=== PATIENT | male | born 1965 | race Caucasian/White ===

== ENCOUNTER → 2021-08-28 | Outpatient (CLI) | payer OTHER ==
[2021-08-28 12:09] LABS: BUN/CREATININE RATIO 8 (0-10)
== END ==
LOC: OPSV2 10:30
PROVIDERS: Orthopaedic Surgery
DX: Z01.818 Encounter for other preprocedural examination (principal); S83.241A Other tear of medial meniscus, current injury, right knee, initial encounter
CPT/HCPCS: 80048; 93005

== ENCOUNTER → 2021-09-11 | Day surgery (SDC) | payer OTHER ==
[~2021-09-11] VITALS: Ht 175.3 cm; Wt 83.0 kg
[~2021-09-11] MED LIST: ADVAIR 250-501 EACH INH; ALBUTEROL1.25 MG/3 INH; ASPIRIN CHEWABL81 MG PO; HYDROCODON-ACE1 EAC2 PO; PROVENTIL HFA6.7 GM INH; VALSARTAN160 MG PO; ZOCOR40 MG PO
== END | disposition home or self-care (01) ==
LOC: OR 06:40
DX: M23.321 Other meniscus derangements, posterior horn of medial meniscus, right knee (principal); M22.41 Chondromalacia patellae, right knee; M17.11 Unilateral primary osteoarthritis, right knee; M23.41 Loose body in knee, right knee; I25.2 Old myocardial infarction; F17.200 Nicotine dependence, unspecified, uncomplicated; Y93.H3 Activity, building and construction; Y92.002 Bathroom of unspecified non-institutional (private) residence as the place of occurrence of the external cause; Z86.73 Personal history of transient ischemic attack (TIA), and cerebral infarction without residual deficits; Z79.82 Long term (current) use of aspirin; Z88.8 Allergy status to other drugs, medicaments and biological substances; Z20.822 Contact with and (suspected) exposure to COVID-19
CPT/HCPCS: J0171; J0690; J1100; J2250; J2405; J2704; J2765; J3010; J7120

== ENCOUNTER 2021-09-22 21:18 | Emergency (ER) | payer OTHER ==
[2021-09-22] MEDS ORDERED: Voltaren Gel 1 % TOP (22:29)
== END 2021-09-22 22:55 | disposition home or self-care (01) ==
LOC: ER1 21:18
DX: S80.01XA Contusion of right knee, initial encounter (principal); S80.02XA Contusion of left knee, initial encounter; J44.9 Chronic obstructive pulmonary disease, unspecified; I10 Essential (primary) hypertension; W01.10XA Fall on same level from slipping, tripping and stumbling with subsequent striking against unspecified object, initial encounter; Y92.009 Unspecified place in unspecified non-institutional (private) residence as the place of occurrence of the external cause
CPT/HCPCS: 73562; 99283

== ENCOUNTER 2021-12-23 16:58 | Emergency (ER) | payer OTHER ==
[~2021-12-23 16:58] MED LIST changes: +Voltaren Gel 1 % TOP
== END 2021-12-23 20:00 | disposition left against medical advice (07) ==
LOC: ER1 16:58
DX: M25.561 Pain in right knee (principal); I25.2 Old myocardial infarction; F17.210 Nicotine dependence, cigarettes, uncomplicated; Z95.5 Presence of coronary angioplasty implant and graft
CPT/HCPCS: 73564; 99281